=== PATIENT | female | born 1970 | race Caucasian/White ===

== ENCOUNTER 2017-12-14 21:18 | Emergency (ER) | payer BC ==
[~2017-12-14] VITALS: Ht 162.6 cm; Wt 92.5 kg
[~2017-12-14 21:18] MED LIST changes: -COZAAR 25 MG TA25 M1; -OMEPRAZOLE20 M1; -PERCOCET 5-3251 EACH PO; -XELJANZ XR11 MG
[2017-12-14] MEDS ORDERED: OMEPRAZOLE20 M1 (21:31)
[2017-12-14] MEDS ORDERED: COZAAR 25 MG TA25 M1 (21:31)
[2017-12-14] MEDS ORDERED: XELJANZ XR11 MG (21:31)
[2017-12-14 21:41] LABS: URINE BILIRUBIN NEGATIVE (Negative); URINE BLOOD NEGATIVE (Negative); URINE CLARITY CLEAR; URINE COLOR YELLOW; URINE GLUCOSE-RANDOM NEGATIVE (Negative); URINE KETONES TRACE (Negative); URINE LEUKOCYTES-REFLEX NEGATIVE (Negative); URINE NITRITE-REFLEX NEGATIVE (Negative); URINE PROTEIN NEGATIVE (Negative); URINE SPECIFIC GRAVITY 1.015 (1.005-1.030); URINE UROBILINOGEN 0.2 E.U./dl (0.2-1.0)
[2017-12-14 21:48] LABS: ABSOLUTE BASOPHILS 0.1 thou/uL (0.0-0.2); ABSOLUTE EOSINOPHILS 0.1 thou/uL (0.0-0.7); ABSOLUTE LYMPHOCYTES 2.5 thou/uL (0.8-5.3); ABSOLUTE MONOCYTES 0.9 thou/uL (0.0-1.2); BASOPHILS 0.7 %; HEMATOCRIT 43.5 % (37.0-47.0); HEMOGLOBIN 14.5 gm/dL (12.0-15.0); LYMPHOCYTES 25.9 %; MCHC 33.2 g/dL (28.0-37.0); MCV 99.4 fL (80.0-100.0); MONOCYTES 9.6 %; MPV 7.3 fl. (7.2-11.1); NUCLEATED RBCS 0 /100WBC; PLATELET COUNT* 377 thou/uL (150-400); POLYS 62.8 %; RBC 4.38 mil/uL (4.20-5.00); RDW-CV 13.8 % (10.5-14.5); WBC 9.6 thou/uL (4.0-11.0)
[2017-12-14 21:56] LABS: CALCIUM 9.5 mg/dL (8.5-10.1); CREATININE 0.9 mg/dL (0.6-1.3)
[2017-12-14 22:01] LABS: ALBUMIN 4.2 g/dL (3.4-5.0); TOTAL BILIRUBIN 0.4 mg/dL (<0.1-1.0); TOTAL PROTEIN 7.8 g/dL (6.4-8.2)
[2017-12-14] MEDS ORDERED: PERCOCET 5-3251 EACH PO (23:33)
[2017-12-14 23:52] VITALS: BP 146/73
--- NOTE | 2017-12-16 13:32 | EKG ---
[place] [address] ELECTROCARDIOGRAM REPORT Name: ANUPAM WALTERS Nayla Room: [facility]#: [id number] Admission: 12/14/17 Attend Phys: Discharge: 12/14/17 Date of : 66 Report #: [id number] THIS REPORT FOR: //name// [facility] ED Test Date: 2017-12-14 Test Time: 22:12:17 Pat Name: ANUPAM WALTERS Department: Room: Gender: F Credit Specialist: ALEJANDRINA : 1970 Requested By: Luz Maria Corona Order Number: [id number] MD: Juan José Rodgers Measurements Intervals [facility] Rate: 85 P: 60 [place]: 123 QRS: 45 QRSD: 88 T: 55 QT: 382 QTc: 455 Interpretive Statements Sinus rhythm Compared to ECG 12/11/2011 05:33:14 No significant changes Electronically Signed On 12-16-2017 13:32:31 CDT by Juan José Rodgers [email or web address] <ELECTRONICALLY SIGNED> By: Juan José Rodgers MD, [facility] 12/16/17 1332 2212 2212 Juan José Rodgers MD, [facility] /EPI
== END 2017-12-14 23:52 | disposition home or self-care (01) ==
LOC: M.ERS 21:18
PROVIDERS: Nurse Practitioner Family
DX: R10.12 Left upper quadrant pain (principal); M06.9 Rheumatoid arthritis, unspecified

== ENCOUNTER → 2017-12-14 | Outpatient (CLI) | payer BC ==
[~2017-12-14] MED LIST: CERTOLIZUMAB PEGOL; CIPROFLOXACIN500 M1 PO; COZAAR 25 MG TA25 M1; CYCLOBENZAPRINE10 MG; FOLIC ACID1 MG; NABUMETONE 750750 M1; OMEPRAZOLE20 M1; PERCOCET 5-3251 EACH PO; PYRIDIUM200 MG PO; RHEUMATREX2.5 MG; SULFASALAZINE500 M4; TRAMADOL 50 MG50 MG; VICODIN 5-5001 EACH PO; VITAMIN D-32000 UNIT; XELJANZ XR11 MG
== END ==
LOC: M.CT 11:16 → M.RAD 11:16 → M.CT 12:00
DX: K76.0 Fatty (change of) liver, not elsewhere classified (principal); K42.9 Umbilical hernia without obstruction or gangrene

== ENCOUNTER 2019-10-31 13:07 | Emergency (ER) | payer OTHER ==
[~2019-10-31] VITALS: Ht 162.6 cm; Wt 93.0 kg
[~2019-10-31 13:07] MED LIST changes: +COZAAR 25 MG TA25 M1; +OMEPRAZOLE20 M1; +PERCOCET 5-3251 EACH PO; +XELJANZ XR11 MG
[2019-10-31 13:58] LABS: URINE BILIRUBIN NEGATIVE (Negative); URINE BLOOD NEGATIVE (Negative); URINE CLARITY CLEAR; URINE COLOR YELLOW; URINE GLUCOSE-RANDOM NEGATIVE (Negative); URINE KETONES NEGATIVE (Negative); URINE LEUKOCYTES-REFLEX NEGATIVE (Negative); URINE NITRITE-REFLEX NEGATIVE (Negative); URINE PROTEIN NEGATIVE (Negative); URINE UROBILINOGEN 0.2 E.U./dl (0.2-1.0)
[2019-10-31 14:01] LABS: ABSOLUTE LYMPHOCYTES 1.5 thou/uL (0.8-5.3); ABSOLUTE MONOCYTES 0.5 thou/uL (0.0-1.2); ABSOLUTE NEUTROPHILS 6.9 thou/uL (1.6-8.1); BASOPHILS 0.2 %; EOSINOPHILS 0.4 %; HEMATOCRIT 41.8 % (37.0-47.0); HEMOGLOBIN 14.2 gm/dL (12.0-15.0); LYMPHOCYTES 16.7 %; MCH 32.5 pg (26.0-34.0); MCHC 34.1 g/dL (28.0-37.0); MCV 95.5 fL (80.0-100.0); MONOCYTES 5.4 %; MPV 7.6 fl. (7.2-11.1); NUCLEATED RBCS 0 /100WBC; PLATELET COUNT* 334 thou/uL (150-400); POLYS 77.3 %; RBC 4.38 mil/uL (4.20-5.00); RDW-CV 13.4 % (10.5-14.5)
[2019-10-31 14:06] LABS: AMP/METHAMP Negative (Negative); BARBITURATES Negative (Negative); BENZODIAZEPINES Negative (Negative); COCAINE Negative (Negative); METHADONE Negative (Negative); OPIATES Negative (Negative); PCP Negative (Negative); THC Negative (Negative)
[2019-10-31 14:47] LABS: ALBUMIN 3.5 g/dL (3.4-5.0); ALKALINE PHOSPHATASE 61 U/L (46-116); ANION GAP 0 mmol/L (7-16); BUN 12 mg/dL (7-18); CALCIUM 8.4 mg/dL (8.5-10.1); CHLORIDE 104 mmol/L (98-107); CO2 29 mmol/L (21-32); CREATININE 0.7 mg/dL (0.6-1.3); GLUCOSE 85 mg/dL (70-99); SGOT 15 U/L (15-37); SGPT 23 U/L (30-65); SODIUM 133 mmol/L (136-145); TOTAL BILIRUBIN 0.6 mg/dL (<0.1-1.0); TOTAL PROTEIN 7.2 g/dL (6.4-8.2); TROPONIN-I LEVEL <0.06 ng/mL (<0.06)
[2019-10-31] MEDS ORDERED: LISINOPRIL-HCT1 EAC1 PO (16:03)
[2019-10-31 16:26] VITALS: BP 137/65
--- NOTE | 2019-11-01 07:27 | EKG ---
[place] [address] ELECTROCARDIOGRAM REPORT Name: ANUPAM WALTERS Room: [facility]#: [id number] Admission: 10/31/19 Attend Phys: Discharge: 10/31/19 Date of : 66 Date of Service: 10/31/19 1337 Report #: [id number] THIS REPORT FOR: //name// [facility] ED Test Date: 2019-10-31 Test Time: 13:37:56 Pat Name: ANUPAM WALTERS Department: Room: Gender: Hardware Technician: CHRIS : 1970 Requested By: Clarice Sung Order Number: [id number] MD: Juan José Rodgers Measurements Intervals [place] Rate: 107 P: 53 [place]: 126 QRS: 19 QRSD: 84 T: 39 QT: 344 QTc: 459 Interpretive Statements Sinus tachycardia Compared to ECG 12/14/2017 22:12:17 Sinus rhythm no longer present Electronically Signed On 11-01-2019 7:25:55 CDT by Juan José Rodgers [email or web address] <ELECTRONICALLY SIGNED> By: Juan José Rodgers MD, [facility] 11/01/19 0725 36 Juan José Rodgers MD, [facility] /EPI
== END 2019-10-31 16:32 | disposition home or self-care (01) ==
LOC: M.ERS 13:07
PROVIDERS: Physician Assistant
DX: I10 Essential (primary) hypertension (principal); R07.9 Chest pain, unspecified; R42 Dizziness and giddiness; M06.9 Rheumatoid arthritis, unspecified; R51 Headache; Z79.899 Other long term (current) drug therapy

== ENCOUNTER → 2019-11-16 | Outpatient (CLI) | payer OTHER ==
[~2019-11-16] MED LIST changes: +LISINOPRIL-HCT1 EAC1 PO
== END ==
LOC: M.ULTRA 08:00
PROVIDERS: ATTEND Family Medicine
DX: R10.84 Generalized abdominal pain (principal)

== ENCOUNTER → 2019-12-02 | Outpatient (CLI) | payer OTHER | LOC: M.NUC 12:48 | PROVIDERS: ATTEND Family Medicine | DX: K82.8 Other specified diseases of gallbladder (principal) ==

== ENCOUNTER → 2019-12-30 | Day surgery (SDC) | payer OTHER ==
[~2019-12-30] MED LIST changes: -CYCLOBENZAPRINE10 MG; +CYCLOBENZAPRINE10 MG PO; -FOLIC ACID1 MG; +FOLIC ACID1 MG PO; +MACRODANTIN50 MG PO; +METHOTREXATE 22.5 M1 PO; -OMEPRAZOLE20 M1; +OMEPRAZOLE20 M1 PO; +OXYCODONE HCL 55 MG PO; -SULFASALAZINE500 M4; +SULFASALAZINE500 M4 PO; -XELJANZ XR11 MG; +XELJANZ XR11 MG PO
--- NOTE | ~2019-12-30 | OP ---
[facility] [address] [place] [address] OPERATIVE REPORT Name: WALTERSANUPAM GUSMAN Room: [facility].#: [id number] Admission: 12/30/19 Attend Phys: Zahra Riddle DO Discharge: Date of : 66 Report #: [id number] THIS REPORT FOR: //name// cc: Di Angela Linda J. DO ~ THIS REPORT FOR: //name// CC: Zahra Foy DICTATED BY: Yvonne Harrington DO DATE OF SERVICE: 12/30/2019 Dictated for Zahra Riddle DO PRIMARY CARE PHYSICIAN: Di Angela DO PREOPERATIVE DIAGNOSIS: Biliary dyskinesia. POSTOPERATIVE DIAGNOSES: Biliary dyskinesia with chronic cholecystitis. PROCEDURE PERFORMED: Laparoscopic cholecystectomy. PRIMARY SURGEON: Zahra Riddle DO WATCH ENGINEER: Yvonne Harrington DO, PGY3. SECOND FUND ACCOUNTING MANAGER: Garcia MICHAUD. FINDINGS: Distended gallbladder with overlying adhesions. ANESTHESIA: General, local and TAP block. ESTIMATED BLOOD LOSS: 5 mL. SPECIMEN REMOVED: Gallbladder. COMPLICATIONS: None. INDICATIONS FOR PROCEDURE: The patient is a pleasant 49-year-old female that presented to our office with complaint of recurrent epigastric and right upper quadrant abdominal pain, particularly after meals, worse with dairy products. Workup included a HIDA scan, which showed gallbladder ejection fraction of 18%. [address] [address] OPERATIVE REPORT Name: WALTERS,ANUPAM Nayla Room: [facility].#: [id number] Admission: 12/30/19 Attend Phys: Zahra Riddle DO Discharge: Date of : 66 Report #: [id number] It was recommended that she undergo laparoscopic cholecystectomy. The procedure, risks, benefits, possible complications to include bleeding, infection, injury to surrounding structures, need for additional surgery, need for open procedure, bile leak, injury to common bile duct, risks of anesthesia, and other risks of surgery were discussed with the patient in great detail. She voiced complete understanding and wished to proceed with surgery. DESCRIPTION OF PROCEDURE: Informed consent was obtained. The patient was taken to the operating room and placed supine on the operating room table. General endotracheal anesthesia was induced without difficulty. SCDs were placed on bilateral lower extremities. Preoperative antibiotics were given. A TAP block was performed by our anesthesia providers. The abdomen was prepped and draped in the standard sterile fashion. A timeout was performed to ensure correct patient and procedure. We began by injecting approximately 10 mL of 0.5% Marcaine in the infraumbilical region. A small infraumbilical incision was made using a #11 blade scalpel. Incision was carried down through the subcutaneous tissue using electrocautery. S retractors were used to dissect further down to the level of fascia. Fascia was grasped between 2 Kochers and elevated. Fascia was incised using electrocautery. The peritoneum was entered bluntly using a hemostat. The finger was inserted through our fascial opening and swept around to ensure there were no corazon-incisional adhesions, 0 Vicryl stay sutures were placed on either side of our fascial opening. A 12 mm Karolina trocar was inserted through the fascial opening and secured. Abdomen was insufflated without difficulty. Laparoscopic camera was inserted and a sweep of the anterior abdominal contents was performed. The gallbladder was identified in the expected location in the right upper quadrant. There were some omental adhesions overlying the gallbladder. A subxiphoid and two right upper quadrant 5 mm trocars were inserted under direct visualization. The gallbladder was elevated. The collections assistant then grasped the fundus of the gallbladder and retracted it superiorly and anteriorly. The overlying omental adhesions were gently taken down using a combination of blunt dissection and a small amount of electrocautery. We dissected away these omental adhesions until Jessy's pouch was visualized. Jessy pouch was grasped and the peritoneum overlying it was scored with electrocautery. A combination of blunt dissection and electrocautery were used to open up the peritoneum along the lateral aspect of the gallbladder. We inflated the same technique to open up the peritoneum along the medial aspect of the gallbladder. A [place] dissector was then inserted and used to bluntly dissect away additional tissues from our cystic duct and cystic artery. The cystic artery was visualized in the expected position just posterior to our cystic duct. We continued this blunt dissection until both the cystic duct and cystic artery were completely freed from surrounding tissues. At this point, we had achieved our critical view of safety, we can see if there were 2 and only two structures coursing into the gallbladder. The cystic plate was visualized. A 5 mm clip home health provider was used to place 2 clips proximally on the cystic duct and one clip distally as well as 2 clips proximally on the cystic artery and one clip distally. Both the cystic duct and cystic artery were [facility] [address] [place] [address] OPERATIVE REPORT Name: ANUPAM WALTERS Room: [facility]#: [id number] Admission: 12/30/19 Attend Phys: Zahra Riddle DO Discharge: Date of : 66 Report #: [id number] transected using laparoscopic scissors. The gallbladder was then removed from the liver bed using electrocautery, ensuring hemostasis along the way. The gallbladder was then placed within an EndoCatch bag. The liver edge was re-elevated to ensure that it was hemostatic. Electrocautery was used to achieve hemostasis, our clips were reinspected. There did not appear to be any bile leaking or bleeding from our clips. The patient was then flattened out. The three 5 mm trocars were removed under direct visualization. Abdomen was desufflated without difficulty. The 12 mm Karolina trocar was removed as well as the gallbladder within the EndoCatch bag. The fascia at the infraumbilical incision was grasped between 2 Kochers. Previously placed stay sutures were removed. The fascia at the infraumbilical incision was closed using 0 Vicryl suture in a vpbazo-op-laexk fashion. The skin was closed using 4-0 Monocryl suture in a running subcuticular fashion. The 5 mm trocar sites were closed using 4-0 Monocryl suture in a simple interrupted and inverted fashion. Abdomen was cleansed and dried. Dermabond was applied to each incision. The patient tolerated the procedure very well. She was allowed to awaken in the operating room and was transferred to the PACU in stable condition with plans to discharge home later today. By: 0851 [id number] Riddle DO /nt
[2019-12-30 06:24] LABS: HEMATOCRIT 42.8 % (37.0-47.0); HEMOGLOBIN 14.6 gm/dL (12.0-15.0); MCH 32.6 pg (26.0-34.0); MCHC 34.2 g/dL (28.0-37.0); MCV 95.5 fL (80.0-100.0); MPV 6.9 fl. (7.2-11.1); RBC 4.48 mil/uL (4.20-5.00); RDW-CV 13.8 % (10.5-14.5); WBC 5.9 thou/uL (4.0-11.0)
[2019-12-30 06:46] LABS: CALCIUM 8.6 mg/dL (8.5-10.1); CREATININE 0.9 mg/dL (0.6-1.3); POTASSIUM 4.7 mmol/L (3.5-5.1)
[2019-12-30 06:51] LABS: ALBUMIN 3.8 g/dL (3.4-5.0); TOTAL BILIRUBIN 0.5 mg/dL (<0.1-1.0); TOTAL PROTEIN 7.6 g/dL (6.4-8.2)
--- NOTE | 2020-01-02 17:06 | PATH ---
[address] [address] PATHOLOGY RPT PROCEDURE Name: ANUPAM WALTERS Room: [facility]#: [id number] Admission: 12/30/19 Date of : 66 Discharge: Report #: [id number] Path Case #: [id number] [facility] Accession Number: [id number] . 01 Material submitted: . gallbladder - GALLBLADDER AND CONTENTS . 01 Clinical history: . Biliary dyskinesia. . 02 Diagnosis: Gallbladder and contents: - Chronic cholecystitis. (LEANDRO:viktoria; 01/02/2020) [facility] 01/02/2020 1248 Local . 02 Electronically signed: . Damaso Nieves MD, Pathologist NPI- [id number] . 01 Gross description: . Received in formalin labeled "Anupam Walters, gallbladder and contents" is an intact cholecystectomy specimen measuring 6.9 x 3.3 x 2.8 cm. The serosa is pink-burgess and smooth and the specimen is opened to reveal yellow-green velvety mucosa without polyps or masses. The average wall thickness is 0.1 cm. Calculi are not present. Special Distribution Clerk sections of the fundus and body and the cystic duct margin are submitted in A1. ([facility]; 12/30/2019) [facility] 12/30/2019 1416 Local . 02 Pathologist provided ICD-10: K81.1 . 02 CPT . 216907 Specimen Comment: A courtesy copy of this report has been sent to [phone] Specimen Comment: Report sent to Performed at: [address], [place], [place] [id number] MD Balbir Wilcox MD Phone: [phone] Performed at: 02 [facility] [address], [place], [place] [id number] MD Damaso Nieves MD Phone: [phone]
== END | disposition home or self-care (01) ==
LOC: M.SUR 06:01
PROVIDERS: ATTEND Surgery
DX: K82.8 Other specified diseases of gallbladder (principal); K81.1 Chronic cholecystitis; Z11.59 Encounter for screening for other viral diseases; I10 Essential (primary) hypertension; M06.9 Rheumatoid arthritis, unspecified; Z79.899 Other long term (current) drug therapy; Z98.890 Other specified postprocedural states; Z90.710 Acquired absence of both cervix and uterus